=== PATIENT | male | born 1970 ===

== ENCOUNTER 2016-11-30 09:21 | Outpatient (CLI) | payer OTHER ==
[2016-11-30 11:46] LABS: Basophils % (Auto) 0.9 % (0.0-1.8); Eosinophils % (Auto) 3.2 % (0.0-4.3); Hematocrit 44.5 % (35.5-45.6); Hemoglobin 14.7 gm/dl (11.8-15.2); Mean Corpuscular HGB Conc 33 % (32-34); Mean Corpuscular Hemoglobin 29 pg (28-32); Mean Corpuscular Volume 89 fl (84-94); Platelet Count 186 K/mm3 (140-440); Red Blood Count 5.02 M/mm3 (3.65-5.03); Red Cell Distribution Width 12.8 % (13.2-15.2); White Blood Count 4.3 K/mm3 (4.5-11.0)
[2016-11-30 11:58] LABS: Alanine Aminotransferase 19 units/L (7-56); Albumin 4.5 g/dL (3.9-5); Albumin/Globulin Ratio 1.5 %; Alkaline Phosphatase 55 units/L (35-129); Anion Gap 18 mmol/L; Blood Urea Nitrogen 23 mg/dL (9-20); Calcium 9.3 mg/dL (8.4-10.2); Carbon Dioxide 27 mmol/L (22-30); Chloride 100.2 mmol/L (98-107); Cholesterol 180 mg/dL (50-199); Glucose 93 mg/dL (75-100); HDL Cholesterol 32 mg/dL (40-59); LDL Cholesterol,Direct 128 mg/dL (50-130); Potassium 3.9 mmol/L (3.6-5.0); Sodium 141 mmol/L (137-145); Total Protein 7.5 g/dL (6.3-8.2); Triglycerides 104 mg/dL (2-149)
== END 2016-11-30 09:22 | disposition home or self-care (01) ==
LOC: LABHHL 09:21
PROVIDERS: ATTEND Internal Medicine
DX: I10 Essential (primary) hypertension (principal); E66.9 Obesity, unspecified
CPT/HCPCS: 36415; 80053; 80061; 83036; 84153; 84443; 85025

== ENCOUNTER 2018-11-29 08:21 | Outpatient (CLI) | payer OTHER ==
[2018-11-29 10:48] LABS: Chol/HDL Ratio 5.47 %
[2018-12-02 15:08] LABS: Vitamin D, 25-OH, D2 <4 ng/mL
== END 2018-11-29 08:22 | disposition home or self-care (01) ==
LOC: LAB 08:21
PROVIDERS: ATTEND Internal Medicine
DX: E56.9 Vitamin deficiency, unspecified (principal); E66.9 Obesity, unspecified; E78.2 Mixed hyperlipidemia
CPT/HCPCS: 36415; 80061; 82306; 83036

== ENCOUNTER 2019-04-25 10:10 | Outpatient (CLI) | payer OTHER ==
[2019-04-25 11:25] LABS: Basophils % (Auto) 1.2 % (0.0-1.8); Eosinophils # (Auto) 0.1 K/mm3 (0.0-0.4); Eosinophils % (Auto) 3.6 % (0.0-4.3); Hematocrit 43.8 % (35.5-45.6); Hemoglobin 14.8 gm/dl (11.8-15.2); Lymphocytes # (Auto) 1.7 K/mm3 (1.2-5.4); Lymphocytes % (Auto) 43.8 % (13.4-35.0); Mean Corpuscular HGB Conc 34 % (32-34); Mean Corpuscular Volume 87 fl (84-94); Monocytes # (Auto) 0.2 K/mm3 (0.0-0.8); Monocytes % (Auto) 5.6 % (0.0-7.3); Platelet Count 206 K/mm3 (140-440); Red Blood Count 5.01 M/mm3 (3.65-5.03); Red Cell Distribution Width 13.8 % (13.2-15.2)
[2019-04-25 11:53] LABS: Alanine Aminotransferase 35 units/L (7-56); Albumin 4.8 g/dL (3.9-5); BUN/Creatinine Ratio 21; Blood Urea Nitrogen 19 mg/dL (9-20); Calcium 9.6 mg/dL (8.4-10.2); Hemolysis Index 3; LDL Cholesterol,Direct 159 mg/dL (50-130); Uric Acid 10.4 mg/dL (3.5-7.6)
[2019-04-25 12:06] LABS: Chol/HDL Ratio 5.22 %; HDL Cholesterol 40 mg/dL (40-59)
== END 2019-04-25 10:11 | disposition home or self-care (01) ==
LOC: LAB 10:10
PROVIDERS: ATTEND Internal Medicine
DX: Z13.21 Encounter for screening for nutritional disorder (principal); Z13.29 Encounter for screening for other suspected endocrine disorder; Z00.01 Encounter for general adult medical examination with abnormal findings; E56.9 Vitamin deficiency, unspecified; E78.2 Mixed hyperlipidemia; R73.03 Prediabetes; R68.82 Decreased libido
CPT/HCPCS: 36415; 80053; 80061; 82607; 83036; 84443; 84550; 85025